=== PATIENT | female | born 1990 | race Caucasian/White ===

== ENCOUNTER 2016-05-02 05:34 | Day surgery (SDC) | payer OTHER ==
[~2016-05-02 05:34] MED LIST: SCOPOLAMINE HYDROBROMIDE 1.5 MG PATCH TD ONE
[2016-05-02] MEDS ORDERED: CLINDAMYCIN 900 MG/DEXTROSE 50 ML IV ONE (06:00)
[2016-05-02] MEDS ORDERED: ACETAMINOPHEN 500 MG TAB PO ONE (06:00)
[2016-05-02] MEDS ORDERED: PREGABALIN 75 MG CAP PO ONE (06:00)
[2016-05-02] MEDS ORDERED: BUPIVACAINE/EPI 0.25% 30 ML SDV ONE (06:35)
[2016-05-02] MEDS ORDERED: EPINEPHrine 30 MG/30 ML MDV ONE (06:36)
[2016-05-02] MEDS ORDERED: SCOPOLAMINE HYDROBROMIDE 1.5 MG PATCH TD ONE (06:39)
[2016-05-02] MEDS ORDERED: OXYCODONE/APAP 5/325 TAB PO PRN (06:43)
[2016-05-02] MEDS ORDERED: CHLORHEXIDINE GLUC HIBICLENS 118 ML BTL TP ONE (06:48)
[2016-05-02] MEDS ORDERED: LIDOCAINE 1% 5 ML SDV ONE (06:49)
[2016-05-02] MEDS ORDERED: LR 1,000 ML IV ONE (06:52)
[2016-05-02] MEDS ORDERED: LIDOCAINE 1% 5 ML SDV ID PRN (06:52)
[2016-05-02] MEDS ORDERED: PROPOFOL/EMULSION 500 MG/50 ML BOTTLE IV ONE ×2 (07:53→08:00)
[2016-05-02] MEDS ORDERED: fentaNYL 250 MCG/5 ML INJ ONE (07:53)
[2016-05-02] MEDS ORDERED: MIDAZOLAM 2 MG/2 ML VIAL ONE (07:58)
[2016-05-02] MEDS ORDERED: KETOROLAC 30 MG/1 ML SDV ONE (09:12)
[2016-05-02] MEDS ORDERED: DEXAMETHASONE 4 MG/ML VIAL ONE (09:12)
[2016-05-02] MEDS ORDERED: ONDANSETRON 4 MG/2 ML VIAL ONE (09:12)
[2016-05-02] MEDS ORDERED: NEOSTIGMINE METHYLSULFATE 5 MG/5 ML SYR ONE (09:12)
[2016-05-02] MEDS ORDERED: METOCLOPRAMIDE 10 MG/2 ML VIAL ONE (09:12)
[2016-05-02] MEDS ORDERED: LIDOCAINE 2% 5 ML SDV ONE (09:12)
[2016-05-02] MEDS ORDERED: ROCURONIUM 50 MG/5 ML VIAL ONE (09:12)
[2016-05-02] MEDS ORDERED: GLYCOPYRROLATE 0.2 MG/1 ML VIAL ONE (09:12)
[2016-05-02] MEDS ORDERED: DEXMEDETOMIDINE HCL 200 MCG/2 ML VIAL IV ONE (09:35)
[2016-05-02] MEDS ORDERED: fentaNYL 100 MCG/2 ML INJ ONE (10:31)
[2016-05-02] MEDS ORDERED: OXYCODONE/APAP 5/325 TAB ONE (10:52)
--- NOTE | 2016-05-02 19:33 | DX ---
Fluoroscopy, Greater Than 1 Hour INDICATION: Left hip arthroscopy. FINDINGS: Two intraoperative fluoroscopic images are provided with hardware pointing at the left hip articulation. 14.6 seconds of fluoroscopy was provided.
== END 2016-05-02 12:34 | disposition home or self-care (01) ==
LOC: FSGY 05:34
PROVIDERS: ATTEND Orthopaedic Surgery Sports Medicine
PROC: 0SBB4ZZ Excision of Left Hip Joint, Percutaneous Endoscopic Approach (ICD-10-PCS; principal; 2016-05-02 08:00)
DX: Q65.89 Other specified congenital deformities of hip (principal); J45.909 Unspecified asthma, uncomplicated; K58.9 Irritable bowel syndrome, unspecified; Q79.6 Ehlers-Danlos syndromes
CPT/HCPCS: 29862; 29863; 76001; C1769; J1100; J1885; J2250; J2405; J2704; J2710; J2765; J3010

== ENCOUNTER 2016-05-06 05:22 | Inpatient (IN) | payer OTHER ==
[2016-05-06] MEDS ORDERED: LIDOCAINE 1% 5 ML SDV ID PRN (06:18)
[2016-05-06] MEDS ORDERED: LR 1,000 ML IV ONE (06:18)
[2016-05-06] MEDS ORDERED: CITRATE DEXTROSE SOLN 500 ML BAG ONE (06:47)
[2016-05-06] MEDS ORDERED: SKIN ADHESIVE (DERMABOND) 1 EACH TP ONE (06:47)
[2016-05-06] MEDS ORDERED: ACETAMINOPHEN 500 MG TAB ONE (06:47)
[2016-05-06] MEDS ORDERED: PREGABALIN 75 MG CAP ONE (06:48)
[2016-05-06] MEDS ORDERED: CLINDAMYCIN 900 MG/DEXTROSE/50 ML BAG IV ONE (06:48)
[2016-05-06] MEDS ORDERED: BUPIVACAINE/EPI 0.25% 30 ML SDV ONE (06:48)
[2016-05-06] MEDS ORDERED: ACETAMINOPHEN 500 MG TAB PO ONE (07:00)
[2016-05-06] MEDS ORDERED: CHLORHEXIDINE GLUC HIBICLENS 118 ML BTL TP ONE (07:00)
[2016-05-06] MEDS ORDERED: CLINDAMYCIN 900 MG/DEXTROSE 50 ML IV ONE ×2 (07:00→11:00)
[2016-05-06] MEDS ORDERED: TRANEXAMIC ACID 1,000 MG in NS 100 ML IV ONE (07:00)
[2016-05-06] MEDS ORDERED: PREGABALIN 50 MG CAP PO ONE (07:00)
[2016-05-06] MEDS ORDERED: SCOPOLAMINE HYDROBROMIDE 1.5 MG PATCH TD ONE ×2 (07:02→07:30)
[2016-05-06] MEDS ORDERED: fentaNYL 100 MCG/2 ML INJ ONE (07:04)
[2016-05-06] MEDS ORDERED: PROPOFOL/EMULSION 500 MG/50 ML BOTTLE IV ONE ×3 (07:04→10:54)
[2016-05-06] MEDS ORDERED: ROCURONIUM 50 MG/5 ML VIAL ONE (07:08)
[2016-05-06] MEDS ORDERED: LIDOCAINE 2% 100 MG/5 ML SYR IVP ONE (07:09)
[2016-05-06] MEDS ORDERED: MIDAZOLAM 2 MG/2 ML VIAL ONE (07:13)
[2016-05-06] MEDS ORDERED: HYDROmorphONE/DILAUDID 2 MG/ML SYR ONE (08:43)
[2016-05-06] MEDS ORDERED: ONDANSETRON 4 MG/2 ML VIAL ONE (08:48)
[2016-05-06] MEDS ORDERED: DEXAMETHASONE 4 MG/ML VIAL ONE (08:48)
[2016-05-06] MEDS ORDERED: SUGAMMADEX SODIUM 200 MG/2 ML VIAL IVP ONE (12:24)
[2016-05-06] MEDS ORDERED: ALBUTEROL 60 PUFFS/8 GM MDI IH PRN (12:46)
[2016-05-06] MEDS ORDERED: MAGNESIUM HYDROXIDE 30 ML UDCUP PO PRN (12:47)
[2016-05-06] MEDS ORDERED: ONDANSETRON 4 MG/2 ML VIAL IVP PRN ×2 (12:47→12:58)
[2016-05-06] MEDS ORDERED: POLYETHYLENE GLYCOL 3350 17 GM PKT PO PRN (12:47)
[2016-05-06] MEDS ORDERED: LACTULOSE 20 GM/30 ML UDCUP PO PRN (12:47)
[2016-05-06] MEDS ORDERED: BISACODYL 10 MG SUPP PR PRN (12:47)
[2016-05-06] MEDS ORDERED: fentaNYL 4MCG/ML/BUP 0.1% in 100ML NS EP SCH (12:58)
[2016-05-06] MEDS ORDERED: NALOXONE HCL 0.4 MG/ML INJ IVP PRN (12:58)
[2016-05-06] MEDS ORDERED: NARCOTIC DRIP BAG-TOTAL ALL TYPES EP PRN (12:58)
[2016-05-06] MEDS ORDERED: HYDROmorphONE/DILAUDID 1 MG/ML SYR ONE (13:29)
[2016-05-06] MEDS: diphenhydrAMINE 25 MG CAP PO PRN (17:06)
--- NOTE | 2016-05-06 17:55 | DX ---
Intraoperative Fluoroscopy and Supine AP Pelvis, 10:59 AM History: Pelvic rotational osteotomy Intraoperative fluoroscopy time = 17.63 mGy Findings: One AP view of the pelvis: 2 compression screws overlie the superior right acetabulum and l ateral right iliac crest. 3 Steinmann pins overlie the right acetabulum or an osteotomy is in anatomi c alignment. A surgical drain overlies the left femoral neck. There is been an osteotomy of both late ral superior pubic rami and of the left superior ischium. Impression: Excellent intraoperative alignment.
--- NOTE | 2016-05-06 18:13 | DX ---
Single View Pelvis at 1316 hours HISTORY: Bilateral acetabular osteotomies. Findings: Bilateral superior acetabular osteotomies identified, with two oblique screws on the right and three on the left. No significant degenerative changes bilateral proximal femurs. Moderate sto ol in the colon. IMPRESSION: Bilateral acetabular osteotomies, with screws.
--- NOTE | 2016-05-06 21:10 | SUROPNOTE ---
RANJAN Operative Report - Surgery Surgery was performed at [facility] on 05/06/16 Diagnosis: Left 1. Hip Acetabular Dysplasia Operation: Left Claudette Acetabular Osteotomy (JUSTINE) Surgeon: Rafael Kelley MD Guest Services Coordinator: Mitch HAY Anesthetic: General + epidural Procedure: General anesthetic. Antibiotics given. Cell saver in use. Fluoroscopy. Phase 1: Position lateral, diagonal skin incision between ischial tuberosity and greater trochanter as for posterior hip approach. Blunt split of glut max fibers. Identification of fat pad overlying sciatic nerve. Exposure of sciatic nerve under fat pad, gently retracting it away-medially to ischial tuberosity. Exposure of subcotoloid fossa proximal to short rotators. Using osteotomes and under fluoroscopy, osteotomy of subcotoloid fossa to sciatic notch proximal to ischial spine. Closure of lateral cut. Patient is turned supine. Phase 2: Skin incision just distal to ASIS. Using diathermy the iliac spine was exposed and inguinal ligament + Sartorious were retracted medially, taking the LFCN with them, protecting it. Inner ilium was dissected from iliacus muscle bluntly , with a cob and swab. Dissection continued towards lateral superior ramus pubis. Using fluoroscopy an osteotomy of lateral superior ramus, just medial to tear drop, was performed with curved fish mouth osteotome. Phase 3: Osteotomy lines of the ilium were marked with diathermy as pre planned according to XR/CT and expected correction of acatabulum. 2 Shanz screws were drilled into central acetabular fragment, corresponding with planned correction angles, in order to mobilize central acetabular fragment after osteotomy is complete. Iliac osteotomy was performed with reciprocating saw and the main acetabular fragment was moved to realign weight bearing position. After confirmation of correction using fluoroscopy in AP and false profile planes, the fragment was fixed with 3 - 5.5mm full threaded screws Inguinal ligament and Sartorious were attached back to ASIS through drill holes. Incision was closed according to soft tissue layers. Skin was closed with subdermal Monocryl. Final fluoro shots were obtained to confirm position/correction. After surgery Claire moved both lower limbs and had no NV motor compromise. Evaluation under anesthesia: IR at 90 degrees hip flexion prior to JUSTINE was 25 degrees and after JUSTINE was 15 degrees. Bleedin cc into cell-saver, 135cc of blood products were returned to patient. Post op instructions: 1. Non weight bearing crutches for 4 weeks 2. Epidural analgesia for 24-48 hours 3. Continuous SCD 4. Aspirin 81 mg X1 day once Epidural is discontinued 5. Avoid hip flexion past 90 and hip External rotation. 6. PT according to my recommendations at follow up visit Kind regards, Dr. Rafael Kelley
[2016-05-06] MEDS: SENNOSIDES/DOCUSATE SODIUM TAB PO SCH (21:13)
[2016-05-06] MEDS: ACETAMINOPHEN 325 MG TAB PO PRN (21:17)
[2016-05-07 05:11] LABS: HEMATOCRIT 31.5 % (38.0-47.0); HEMOGLOBIN 10.2 g/dL (12.6-16.3); MEAN CELL HEMOGLOBIN CONCENTR. 32.4 g/dL (32.4-36.7); MEAN CELL VOLUME 89.5 fL (81.5-99.8); RED BLOOD CELL COUNT 3.52 10^6/uL (4.18-5.33); RED CELL DISTRIBUTION WIDTH 14.6 % (11.5-15.2)
[2016-05-07 05:19] LABS: ANION GAP 4 mEq/L (8-16); CALCIUM 8.3 mg/dL (8.5-10.4); CARBON DIOXIDE 26 mEq/l (22-31); CHLORIDE 104 mEq/L (97-110); CREATININE 0.7 mg/dL (0.6-1.0); GLOMERULAR FILTRATION RATE > 60; GLUCOSE 114 mg/dL (70-100); POTASSIUM 4.3 mEq/L (3.5-5.2); SODIUM 134 mEq/L (134-144)
[2016-05-07] MEDS: diphenhydrAMINE 25 MG CAP PO PRN ×3 (07:51→21:17)
[2016-05-07] MEDS: PANTOPRAZOLE SODIUM 40 MG TAB PO SCH (07:51)
[2016-05-07] MEDS: SENNOSIDES/DOCUSATE SODIUM TAB PO SCH ×2 (07:52→20:38)
[2016-05-07] MEDS: PREGABALIN 50 MG CAP PO SCH (07:52)
[2016-05-07] MEDS: CETIRIZINE 10 MG TAB PO SCH (07:53)
[2016-05-07] MEDS: CYCLOBENZAPRINE 10 MG TAB PO SCH (07:53)
[2016-05-07] MEDS ORDERED: FLUTICASONE FUROATE IH SCH (09:00)
[2016-05-07] MEDS: DIAZEPAM 2 MG TAB PO PRN ×3 (09:05→21:17)
--- NOTE | 2016-05-07 09:13 | POSTANESTH ---
Post Anesthetic Evaluation Cardiovascular Status: Normal, Stable, Similar to Pre-Op Cond Respiratory Status: Normal, Stable, Similar to Pre-op Cond. Level of Consciousness/Mental Status: Can Participate in Eval, Alert and Oriented Pain Control: Inadeq, Add Tx Required Nausea/Vomiting Control: Adequate, Prn Tx Ordered Complications Possibly Related to Anesthesia: None Noted Notes: JUSTINE POD# with T12/L1 PCEA. She reports frustration with disruption of epidural infusion. She notes good pain control when infusion is running but that periodic interruptions with pump malfunction and/or bag changes caused significant increases in her discomfort. On examination she has a T10 to L3 level bilateral. She notes that she is able to detect the numbness much more acutely on the nonoperative side. Catheter site is c/d/i, small amount dried heme, no erythema/edema/exudate, catheter at 10 cm. LE strength is 5/5 LLE and 4/5 RLE (exam limited by pain). We discussed the common sensation in these kinds of surgeries of perceived one- sided epidural when physical exam shows a bilateral distribution. Pt expressed understanding. Plan to increase bupivicaine to 0.125%, to attempt a more dense blockade, maintain fentanyl 4 mcg/ml rate 8 demand 4 and lockout 15. Plan to transition to orals starting tomorrow. Ambulate per ortho.
[2016-05-07] MEDS ORDERED: BUPIVACAINE 0.5% EP SCH (11:00)
[2016-05-07] MEDS ORDERED: FENTANYL EP SCH (11:00)
[2016-05-07] MEDS ORDERED: NS EP SCH (11:00)
[2016-05-07] MEDS: DC NARCS MISC SCH (11:14)
[2016-05-07] MEDS: REGARDING ANTICOAG MISC SCH (11:14)
[2016-05-07] MEDS: BUPIVACAINE 0.5% EP SCH ×2 (11:15→18:45)
[2016-05-07] MEDS: NS EP SCH ×2 (11:15→18:45)
[2016-05-07] MEDS: FENTANYL EP SCH ×2 (11:15→18:45)
--- NOTE | 2016-05-07 11:26 | SOAPPROG ---
SOAP Progress Note Assessment/Plan: Assessment: 1 day post op Left periacetabular osteotomy Plan: PCEA per anesthesia transition to oral analgesics in 1-2 05/07/16 10:28 Subjective: Claire describes having numbness in her RLE and 'no pain' relief in her LLE, saying that the epidural is 'not covering' her pain. She denies any nausea, CP , or SOB. Objective: Vital Signs Temp Pulse Resp BP Pulse Ox 37.4 C 110 H 18 120/73 98 05/07/16 07:22 05/07/16 07:22 05/07/16 07:22 05/07/16 07:22 05/07/16 07:22 Laboratory Results 05/07/16 04:49 05/07/16 04:49 05/06/16 05/07/16 05/08/16 05:59 05:59 05:59 Intake Total 985 Output Total 1800 Balance -815 Well appearing in NAD She looks comfortable in bed Left hip: dressings clean dry intact some diffuse edema no LFCN numbness LLE: NVI distally full ROM of foot and ankle ICD10 Worksheet Patient Problems: Problems Problem Status Diagnosed Post-operative pain Acute - ICD10 Problem Qualifiers (1) Post-operative pain
[2016-05-07] MEDS ORDERED: LEVONORGESTREL ETHIN ESTRADIOL PO SCH (11:45)
[2016-05-07] MEDS: ACETAMINOPHEN 325 MG TAB PO PRN (15:22)
[2016-05-07] MEDS: QUASENSE PO SCH ×2 (18:45→20:36)
[2016-05-07] MEDS: FLUTICASONE FUROATE IH SCH (20:35)
[2016-05-08] MEDS: ACETAMINOPHEN 325 MG TAB PO PRN (00:05)
[2016-05-08] MEDS: NS EP SCH ×2 (03:27→12:02)
[2016-05-08] MEDS: diphenhydrAMINE 25 MG CAP PO PRN (03:27)
[2016-05-08] MEDS: BUPIVACAINE 0.5% EP SCH ×2 (03:27→12:02)
[2016-05-08] MEDS: FENTANYL EP SCH ×2 (03:27→12:02)
[2016-05-08] MEDS: DIAZEPAM 2 MG TAB PO PRN ×2 (03:27→10:41)
[2016-05-08] MEDS: ONDANSETRON DISINTEGRATING 4 MG TAB PO PRN (04:23)
[2016-05-08] MEDS: PANTOPRAZOLE SODIUM 40 MG TAB PO SCH (08:44)
[2016-05-08] MEDS: CETIRIZINE 10 MG TAB PO SCH (08:44)
[2016-05-08] MEDS: SENNOSIDES/DOCUSATE SODIUM TAB PO SCH ×2 (08:44→19:50)
[2016-05-08] MEDS: PREGABALIN 50 MG CAP PO SCH (08:45)
[2016-05-08] MEDS: DC NARCS MISC SCH (08:48)
[2016-05-08] MEDS: REGARDING ANTICOAG MISC SCH (08:48)
[2016-05-08] MEDS: QUASENSE PO SCH ×2 (08:48→19:50)
[2016-05-08] MEDS: CYCLOBENZAPRINE 10 MG TAB PO SCH (08:52)
[2016-05-08] MEDS: ACETAMINOPHEN 500 MG TAB PO SCH ×4 (08:53→22:18)
--- NOTE | 2016-05-08 08:53 | POSTANESTH ---
Post Anesthetic Evaluation Cardiovascular Status: Normal, Stable, Similar to Pre-Op Cond Respiratory Status: Normal, Stable, Similar to Pre-op Cond. Level of Consciousness/Mental Status: Can Participate in Eval, Alert and Oriented Pain Control: Adequate, Prn Tx Ordered Nausea/Vomiting Control: Adequate, Prn Tx Ordered Notes: JUSTINE POD#2. Pain control rated as good this am, states 5/10. Feels that the increased concentration yesterday improved pain control. Back site c/d/i, no e/ e/e. Plan to start transition to orals today. D/W patient and she agrees. Decrease PCEA to 4 cc/hr, demand 2 cc lockout 15 min. Oxycodone 10 mg q6 ATC (pt may refuse) Oxycodone 5 mg Q4 PRN Pain. APAP 500 mg Q4 ATC. Orders in. Lyrica as ordered. If successful will hold epidural in the am and D/C tomorrow afternoon.
[2016-05-08] MEDS: oxyCODONE IR 5 MG TAB PO SCH ×3 (12:23→23:51)
[2016-05-08] MEDS: ASPIRIN EC 81 MG TAB PO SCH (12:32)
[2016-05-08 12:49] LABS: HEMATOCRIT 32.8 % (38.0-47.0); HEMOGLOBIN 10.7 g/dL (12.6-16.3)
--- NOTE | 2016-05-08 14:25 | CPEKG ---
Heart Rate: 113 RR Interval: 531 P-R Interval: 136 QRSD Interval: 74 QT Interval: 312 QTC Interval: 428 P Gotha: 73 QRS Gotha: 47 T Wave Gotha: 0 EKG Severity - OTHERWISE NORMAL ECG - EKG Impression: SINUS TACHYCARDIA Electronically Signed By: Aleksandr Motley 08-May-2016 18:16:08
--- NOTE | 2016-05-08 14:40 | PDHOSCONS ---
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 She is in POD #2. Overall she has done well but noted to have slight tachycardia. She is asymptomatics. Denies CP, SOB, palpitation, leg swelling, cough. She is on RA. She has been keeping trach of her HR as she has an apple watch and over the last week her HR has been between 70-120's. She has had some tachycardia prior to the surgery. ROS: + per HPI, otherwise negative PMH: per above PSH: per above SHx: no T/E/I FmHx: Grandfather with heart diseas med/all: see med list O: VS: slight tachycardia MMM NO JVD SLIGHT TACHYCARDIA, NO M/R/G CTA B S/NT/ND NO EDEMA ANXIOUS LABS REVIEWED: HGB 10.7 BMP OK EKG: SINUS TACHYCARDIA I/P #S/P L DWAYNE ACETABULAR OSTEOTOMY, POD #2 #TACHYCARDIA #HX OF GEMINI-DANLOS SYNDROME #ANXIETY? PLAN: ETIOLOGY OF THE TACHYCARDIA IS UNCLEAR. SHE AND THE NURSE REPORT LOW GRADE FEVER WHICH COULD BE CONTRIBUTING. SHE HAS NOT RESP SX'S AND A NORMAL EXAM. WHILE A P.E. IS IN THE DIFFERENTIAL, WOULD EXPECT SOME SX'S. SHE AND HER MOM ALSO REPORT INTERMITTENT TACHYCARDIA. HER TACHYCARDIA COULD CERTAINLY BE FROM ANXIETY. SHE DOES NOT HAVE VOLUME DEPLETION GIVEN THE ABOVE AND HX OF GEMINI-DANLOS, WILL START TELEMETRY AND OBTAIN TTE. IF STILL TACHY TOMORROW, WILL GET A CTA CHEST TO R/O P.E. THANK YOU FOR THIS CONSULT TOTAL TIME SPENT IS 60 MINUTES
--- NOTE | 2016-05-08 17:20 | ECHO ---
[id number] + + [address] : : [place] [address] : : [phone] + + Adult Echocardiographic Report + -----+ :Name: Vic TRANxavier Date: 05/08/2016 02:59 PM : : Hospital Admission Number: [id number] Location : 362: :: 1990 Gender: Female Height: 65 in : :Age: 25 yrs Race: WH Weight: 194 lb : :Reason For Study: Acute on chronic tachycardia in post op : :period BSA: 2.0 meters2 : :History: Lydia : + -----+ MMode/2D Measurements & Calculations IVSd: 0.74 cm LVIDd: 4.7 cm FS: 37.1 % Ao root diam: LVPWd: 0.83 cm LVIDs: 3.0 cm EDV(Teich): 2.5 cm 104.4 ml LA dimension: ESV(Teich): 2.9 cm 34.4 ml EF(Teich): 67.0 % LVLd ap4: 9.0 cm SV(MOD-sp4): EDV(MOD-sp4): 50.0 ml 77.0 ml LVLs ap4: 7.1 cm ESV(MOD-sp4): 27.0 ml EF(MOD-sp4): 64.9 % Normal Measurement Values: + + :LVIDd (3.5-5.7cm) IVSd (0.6-1.1cm) LVPWd (0.6-1.1cm) Aortic Root (2.0-3.7cm)Left Atrium (1.5-4.0cm): :LV Vol(d) (76-115ml) LV Vol(s) (29-48ml) Ejec Fraction (50-65%)PV Tristian (0.6- 1.2m/s) TV Tristian (0.4-1.0m/s) : :MV E Tristian (0.8-1.0m/s)MV A Tristian (0.3-1.0m/s)LVOT Tristian (0.7-1.2m/s) Asc Ao Tristian ( 0.9-1.8m/s) : + + Doppler Measurements & Calculations MV E max tristian: 79.5 cm/sec Ao V2 max: 161.0 cm/sec MV A max tristian: 61.2 cm/sec Ao max P.4 mmHg MV E/A: 1.3 Ao mean P.0 mmHg Ao V2 mean: 114.0 cm/sec Ao V2 VTI: 24.7 cm Left Ventricle The left ventricle is normal in size. There is normal left ventricular wall thickness. Ejection Fraction = 65-70%. The left ventricle is hyperdynamic. Right Ventricle The right ventricle is normal in size and function. Atria The left atrial size is normal. Right atrial size is normal. Mitral Valve The mitral valve is normal in structure and function. There is no evidence of mitral valve prolapse. There is no mitral valve stenosis. Tricuspid Valve Normal tricuspid valve. There is trace tricuspid regurgitation. Aortic Valve The aortic valve is not well visualized. There is no aortic stenosis. There is no aortic insufficiency. Pulmonic Valve The pulmonic valve is not well visualized. Great Vessels The aortic root is normal size. Pericardium/Pleural There is no pericardial effusion. Conclusion A complete two-dimensional transthoracic echocardiogram was performed (2D, M-mode, Doppler and color flow Doppler). 1. The left ventricle is normal in size. The left ventricle is hyperdynamic. The Ejection Fraction = 65-70%. 2. The mitral valve is normal in structure and function. 3. The aortic valve is not well visualized. There is no aortic stenosis. There is no aortic insufficiency. 4. The pulmonary artery pressure could not be adequately estimated. 5. No pericardial effusion. 6. No old studies for comparison. Final Reading Physician: Moiz Gallardo MD electronically signed on 05/08/2016 05:19 PM Ordering Physician: Catracho Diaz Performed By: Kelsy Martines RDCS
[2016-05-08] MEDS: FLUTICASONE FUROATE IH SCH (19:51)
--- NOTE | 2016-05-08 21:58 | SOAPPROG ---
JAMES Progress Note Assessment/Plan: Assessment: Plan: 05/08/16 21:56 Saw Claire today. She is doing well. pain well managed. vitals are stable. HR was high today and this was looked into by hospitalist including Holter placement. she is now 105 HR, NV intact, well managed with pain (although epidural doesn't work well on op side). will do xR tomorrow Dr Kelley Objective: Vital Signs Temp Pulse Resp BP Pulse Ox 36.9 C 105 H 19 127/71 H 94 05/08/16 20:04 05/08/16 20:04 05/08/16 20:04 05/08/16 20:04 05/08/16 20:04 Laboratory Results 05/08/16 12:40 05/07/16 04:49 05/07/16 05/08/16 05/09/16 05:59 05:59 05:59 Intake Total 229 377 0663 Output Total 1800 2500 2350 Balance -815 -1800 150 ICD10 Worksheet Patient Problems: Problems Problem Status Diagnosed Post-operative pain Acute
[2016-05-09] MEDS: ACETAMINOPHEN 500 MG TAB PO SCH ×6 (02:00→21:13)
[2016-05-09 05:07] LABS: HEMATOCRIT 32.3 % (38.0-47.0); HEMOGLOBIN 10.5 g/dL (12.6-16.3); MEAN CELL HEMOGLOBIN 29.1 pg (27.9-34.1); MEAN CELL HEMOGLOBIN CONCENTR. 32.5 g/dL (32.4-36.7); MEAN CELL VOLUME 89.5 fL (81.5-99.8); RED BLOOD CELL COUNT 3.61 10^6/uL (4.18-5.33); RED CELL DISTRIBUTION WIDTH 14.6 % (11.5-15.2)
[2016-05-09 05:33] LABS: ANION GAP 6 mEq/L (8-16); CALCIUM 8.3 mg/dL (8.5-10.4); CARBON DIOXIDE 26 mEq/l (22-31); CHLORIDE 107 mEq/L (97-110); CREATININE 0.6 mg/dL (0.6-1.0); GLOMERULAR FILTRATION RATE > 60; GLUCOSE 99 mg/dL (70-100); POTASSIUM 4.1 mEq/L (3.5-5.2); SODIUM 139 mEq/L (134-144)
[2016-05-09] MEDS: oxyCODONE IR 5 MG TAB PO SCH ×3 (06:02→18:38)
--- NOTE | 2016-05-09 06:55 | POSTANESTH ---
Post Anesthetic Evaluation Cardiovascular Status: Normal, Stable, Similar to Pre-Op Cond Respiratory Status: Normal, Stable, Similar to Pre-op Cond. Level of Consciousness/Mental Status: Can Participate in Eval, Alert and Oriented Pain Control: Adequate, Prn Tx Ordered Nausea/Vomiting Control: Adequate, Prn Tx Ordered Complications Possibly Related to Anesthesia: None Noted Notes: JUSTINE POD#3. BAck site C/D/I, no e/e/e. Pain 4/10, transitioning well to oral medications. Plan to hold PCEA infusion this am and D/C 10 am.
[2016-05-09] MEDS: ASPIRIN EC 81 MG TAB PO SCH (08:46)
[2016-05-09] MEDS: PREGABALIN 50 MG CAP PO SCH (08:47)
[2016-05-09] MEDS: PANTOPRAZOLE SODIUM 40 MG TAB PO SCH (08:47)
[2016-05-09] MEDS: CYCLOBENZAPRINE 10 MG TAB PO SCH (08:47)
[2016-05-09] MEDS: SENNOSIDES/DOCUSATE SODIUM TAB PO SCH ×2 (08:47→21:11)
[2016-05-09] MEDS: CETIRIZINE 10 MG TAB PO SCH (08:47)
--- NOTE | 2016-05-09 09:05 | DX ---
AP Pelvis History: Follow-up rotational pelvic osteotomy Comparison: May 06 Findings: Alignment of the pelvic ring is stable. Compression screws are in stable position. Impression: Stable.
[2016-05-09] MEDS: DC NARCS MISC SCH (10:03)
[2016-05-09] MEDS: REGARDING ANTICOAG MISC SCH (10:03)
[2016-05-09] MEDS: oxyCODONE IR 5 MG TAB PO PRN ×3 (10:19→21:14)
[2016-05-09] MEDS: diphenhydrAMINE 25 MG CAP PO PRN ×2 (10:21→21:10)
[2016-05-09] MEDS: DIAZEPAM 2 MG TAB PO PRN ×2 (13:01→19:36)
[2016-05-09] MEDS ORDERED: CANN-EASE 2 GM TUBE TP ONE (13:53)
--- NOTE | 2016-05-09 15:02 | HOSPPROG ---
Hospitalist Progress Note Assessment/Plan: #S/P L DWAYNE ACETABULAR OSTEOTOMY, POD #3 #TACHYCARDIA, LIKELY PAIN VS ANXIETY RELATED -SHE HAS NO RESP SX'S, NO CP -IF TACHYCARDIA PERSIST, CONSIDER CTA (PT WANTS TO HOLD OFF ON CHECKING THIS TODAY) -TTE NORMAL -EKG SINUS TACHYCARDIA #HX OF TODD-DANLOS SYNDROME #ANXIETY #ACUTE PAIN PLAN: OVERALL STABLE. SHE REPORTS LOTS OF PAIN YESTERDAY AND TODAY WELL ANXIETY REGARDING THE PAIN. THIS IS LIKELY THE CAUSE OF THE TACHYCARDIA. LOW SUSPICION FOR ACUTE P.E. GIVEN NO SX'S AND ALTERNATIVE REASON FOR TACHYCARDIA. SHE WANTS TO HOLD OFF GETTING CTA AT THIS TIME S: + PAIN NO CP NO PALPITATION O: VSS NAD AAOX3 RRR CTA B S/NT/ND NO LE EDEMA LABS: REVIEWED Objective: Vital Signs Temp Pulse Resp BP Pulse Ox 37.1 C 119 H 18 119/85 H 93 05/09/16 11:17 05/09/16 11:17 05/09/16 11:17 05/09/16 11:17 05/09/16 11:17 Laboratory Results 05/09/16 04:46 05/09/16 04:46 05/08/16 05/09/16 05/10/16 05:59 05:59 05:59 Intake Total 700 3200 Output Total 2500 3200 1500 Balance -1800 0 -1500 ICD10 Worksheet Patient Problems: Problems Problem Status Diagnosed Post-operative pain Acute
--- NOTE | 2016-05-09 17:49 | WOCRNPDOC ---
WOCRN Advanced Assessment Note - Skin Integrity Problem, Advanced Assess Left Hip Blister Dressing Type: LeukoMed with Pads (over surgical wounds. ) Wound Bed Constitution: Intact Serous Filled Blister (multiple) Skin Integrity Problem Comment: Multiple blisters along border of tegaderm and adjacent to it. May be contact dermatits reaction. Covered with Allevyn for protection. Shey Roa in room for care.
[2016-05-09] MEDS: FLUTICASONE FUROATE IH SCH (21:16)
[2016-05-09] MEDS: QUASENSE PO SCH (21:16)
--- NOTE | 2016-05-09 23:09 | SOAPPROG ---
SOAP Progress Note Assessment/Plan: Assessment: Plan: 05/08/16 21:56 Saw Claire today. She is doing well. pain well managed. vitals are stable. HR was high today and this was looked into by hospitalist including Holter placement. she is now 105 HR, NV intact, well managed with pain (although epidural doesn't work well on op side). will do xR tomorrow Dr Kelley 05/09/16 23:07 Saw Claire this morning. objectively she is doing well. High Hb for POD 3, NV intact, Radiograph show good unchanged alignment. however she is stressed over her epidural experience and current pain level. she has some blisters around Tegaderm, addressed. Epi is out. We will consider discharge when she feels confident. Dr Kelley Objective: Vital Signs Temp Pulse Resp BP Pulse Ox 37.8 C 129 H 20 133/74 H 97 05/09/16 19:59 05/09/16 19:59 05/09/16 19:59 05/09/16 19:59 05/09/16 19:59 Laboratory Results 05/09/16 04:46 05/09/16 04:46 05/08/16 05/09/16 05/10/16 05:59 05:59 05:59 Intake Total 700 3200 Output Total 2500 3200 1850 Balance -1800 0 -1850 ICD10 Worksheet Patient Problems: Problems Problem Status Diagnosed Post-operative pain Acute
[2016-05-10] MEDS: ACETAMINOPHEN 500 MG TAB PO SCH ×6 (00:52→21:11)
[2016-05-10] MEDS: oxyCODONE IR 5 MG TAB PO SCH ×4 (00:53→18:25)
[2016-05-10] MEDS: DIAZEPAM 2 MG TAB PO PRN (05:11)
[2016-05-10] MEDS: diphenhydrAMINE 25 MG CAP PO PRN (05:15)
[2016-05-10] MEDS: ASPIRIN EC 81 MG TAB PO SCH (09:07)
[2016-05-10] MEDS: PREGABALIN 50 MG CAP PO SCH (09:07)
[2016-05-10] MEDS: CYCLOBENZAPRINE 10 MG TAB PO SCH (09:07)
[2016-05-10] MEDS: PANTOPRAZOLE SODIUM 40 MG TAB PO SCH (09:07)
[2016-05-10] MEDS: CETIRIZINE 10 MG TAB PO SCH (09:07)
[2016-05-10] MEDS: oxyCODONE IR 5 MG TAB PO PRN (09:08)
[2016-05-10] MEDS: DC NARCS MISC SCH (09:08)
[2016-05-10] MEDS: REGARDING ANTICOAG MISC SCH (09:08)
[2016-05-10] MEDS: SENNOSIDES/DOCUSATE SODIUM TAB PO SCH ×2 (09:22→21:10)
[2016-05-10] MEDS ORDERED: oxyCODONE IR 5 MG TAB PO PRN (12:40)
[2016-05-10] MEDS: ONDANSETRON DISINTEGRATING 4 MG TAB PO PRN (12:40)
[2016-05-10] MEDS: NAPROXEN SODIUM 220 MG TAB PO SCH ×2 (14:30→21:11)
--- NOTE | 2016-05-10 16:07 | HOSPPROG ---
Hospitalist Progress Note Assessment/Plan: Assessment: 25-year-old female presents with Pedroza where syndrome requiring yamile-acetabular osteotomy Plan: 1. Periacetabular osteotomy. Primary service is Dr. Samina Porter, postop day 4 -postsurgical care and weight-bearing status per primary team 2. Pain. Pain Management is a significant issue for this patient at the present time she is complaining of left hip pain, pain with movement, total body pain, headache -agree with scheduled oxycodone immediate release 10 mg q.6 hours to reduce spikes of uncontrolled pain, this could be transitioned to oxycodone sustained release if so desired by the primary team -adjusted the breakthrough dosage of oxycodone immediate release from 5 mg to 5- 10 mg q.4 hours p.r.n. -continue scheduled Tylenol per primary team -initiate nonsteroidal anti-inflammatory medication per primary team -continue as needed Benadryl for headache -she has IV morphine p.r.n. breakthrough -please contact the primary service if further, specific questions arise about the pain management regiment from the patient 3. Tachycardia. Sinus, a personally interpreted EKG, most likely secondary to a combination of pain and emotional distress -patient has no evidence of focal chest pain, shortness of breath, hypoxia, consequently pulmonary embolism is less likely and I would not recommend a CT angiogram at this time -monitor CBC to ensure that patient's blood count is not significantly declining and contributing to her tachycardia -continue to improve pain management as well as provide emotional distress support, as emotional distress is significantly impacting patient's current care 4. Reported yellow stain were syndrome. Continue to offer support for this patient given her highly medical [facility] Medicine service will continue to consult in this patient's care please contact us if there are further questions Subjective: The patient is experiencing a significant amount of emotional distress, she has had a bowel movement Objective: Vital Signs Temp Pulse Resp BP Pulse Ox 36.9 C 96 18 141/86 H 100 05/10/16 12:00 05/10/16 12:00 05/10/16 12:00 05/10/16 12:00 05/10/16 12:00 Laboratory Results 05/09/16 04:46 05/09/16 04:46 05/09/16 05/10/16 05/11/16 05:59 05:59 05:59 Intake Total 3200 300 Output Total 3200 1850 1 Balance 0 -1550 -1 - Time Spent With Patient Time Spent with Patient: greater than 35 minutes Time Spent with Patient: Greater than 35 minutes spent on this patients care, greater than 50% of time spent counseling, educating, and coordinating care regarding the above mentioned plan. - Pending Discharge Pending Discharge Within 24 Hours: Yes Pending Discharge Date: 05/11/16 Pending Discharge Time: 11:00 - Physical Exam Constitutional: uncomfortable, No no apparent distress, No not in pain Cardiovascular: tachycardia, edema (Soft tissue out left lower extremity), No systolic murmur, No irregularly irregular Respiratory: no respiratory distress, no rales or rhonchi, clear to auscultation Gastrointestinal: normoactive bowel sounds, soft, non-tender abdomen, no palpable masses Skin: other (Soft tissue tenderness left lower extremity) Neurologic: AAOx3, sensation intact bilaterally, No weakness Psychiatric: not encephalopathic, anxious, agitated ICD10 Worksheet Patient Problems: Problems Problem Status Diagnosed Post-operative pain Acute
--- NOTE | 2016-05-10 16:58 | SOAPPROG ---
SOAP Progress Note Assessment/Plan: Assessment: 4th day post op Left periacetabular osteotomy Plan: Up with PT/OT Oral analgesics/IVP Morphine VTE: ASA 81mg, Active Care SCD D/C home tomorrow evening Thanks to the hospitalist service for assisting us in her management 05/07/16 10:28 05/10/16 16:54 05/10/16 16:59 Subjective: Claire now without epidural, up in chair this morning appearing comfortable. Her mom describes transition to oral analgesics was not smooth. Rocco denies CP, SOB, nausea, feels she would be ready to go home tomorrow. Objective: Vital Signs Temp Pulse Resp BP Pulse Ox 36.9 C 106 H 18 143/83 H 95 05/10/16 16:00 05/10/16 16:00 05/10/16 16:00 05/10/16 16:00 05/10/16 16:00 Laboratory Results 05/09/16 04:46 05/09/16 04:46 05/09/16 05/10/16 05/11/16 05:59 05:59 05:59 Intake Total 3200 300 Output Total 3200 1850 1 Balance 0 -1550 -1 Well appearing in NAD Left hip: dressings clean dry intact some edema, no apparent ecchymosis NVI distally good ROM of foot an ankle - Pending Discharge Pending Discharge Within 24 Hours: Yes Pending Discharge Date: 05/11/16 Pending Discharge Time: 11:00 ICD10 Worksheet Patient Problems: Problems Problem Status Diagnosed Post-operative pain Acute - ICD10 Problem Qualifiers (1) Post-operative pain
[2016-05-10] MEDS: QUASENSE PO SCH (21:11)
[2016-05-10] MEDS: FLUTICASONE FUROATE IH SCH (21:12)
[2016-05-11] MEDS: oxyCODONE IR 5 MG TAB PO SCH ×4 (01:05→17:38)
[2016-05-11] MEDS: ACETAMINOPHEN 500 MG TAB PO SCH ×5 (01:05→17:38)
[2016-05-11 05:50] LABS: % IMMATURE GRANULYOCYTES 0.8 % (0.0-1.1); ABSOLUTE IMMATURE GRANULOCYTES 0.07 10^3/uL (0.00-0.10); ADD DIFF? NO; ADD MORPH? NO; ADD SCAN? NO; ATYPICAL LYMPHOCYTE FLAG 10 (0-99); FRAGMENT RBC FLAG 0 (0-99); HEMATOCRIT 31.2 % (38.0-47.0); LEFT SHIFT FLG 10 (0-99); LIPEMIA HEMOLYSIS FLAG 80 (0-99); MEAN CELL HEMOGLOBIN 28.9 pg (27.9-34.1); MEAN CELL HEMOGLOBIN CONCENTR. 32.1 g/dL (32.4-36.7); MEAN CELL VOLUME 90.2 fL (81.5-99.8); MEAN PLATELET VOLUME 9.8 fL (8.7-11.7); PLATELET CLUMPS FLAG 0 (0-99); PLATELET COUNT 272 10^3/uL (150-400); RED BLOOD CELL COUNT 3.46 10^6/uL (4.18-5.33); RED CELL DISTRIBUTION WIDTH 14.3 % (11.5-15.2)
[2016-05-11 06:21] LABS: ANION GAP 4 mEq/L (8-16); CALCIUM 8.4 mg/dL (8.5-10.4); CARBON DIOXIDE 26 mEq/l (22-31); CHLORIDE 107 mEq/L (97-110); CREATININE 0.6 mg/dL (0.6-1.0); GLOMERULAR FILTRATION RATE > 60; GLUCOSE 95 mg/dL (70-100); POTASSIUM 4.6 mEq/L (3.5-5.2); SODIUM 137 mEq/L (134-144)
[2016-05-11] MEDS: CETIRIZINE 10 MG TAB PO SCH (09:45)
[2016-05-11] MEDS: PREGABALIN 50 MG CAP PO SCH (09:45)
[2016-05-11] MEDS: ASPIRIN EC 81 MG TAB PO SCH (09:45)
[2016-05-11] MEDS: PANTOPRAZOLE SODIUM 40 MG TAB PO SCH (09:46)
[2016-05-11] MEDS: CYCLOBENZAPRINE 10 MG TAB PO SCH (09:46)
[2016-05-11] MEDS: NAPROXEN SODIUM 220 MG TAB PO SCH (09:46)
[2016-05-11] MEDS: SENNOSIDES/DOCUSATE SODIUM TAB PO SCH (09:46)
--- NOTE | 2016-05-11 13:37 | HOSPPROG ---
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 Periacetabular osteotomy. Primary service is Dr. Samina Porter, postop day 5 -postsurgical care and weight-bearing status per primary team 2. Pain. Pain Management has significantly improved w/ the scheduled oxy IR/ tylenol/nsaid, plus breakthrough oxy IR -patient is confident about discharge on this pain regimen -I educated her that she will need to take stool softener/laxative daily while on pain Rx 3. Tachycardia. Sinus, a personally interpreted EKG, most likely secondary to a combination of pain and emotional distress, improved w/ better pain mgmt -patient has no evidence of focal chest pain, shortness of breath, hypoxia, consequently pulmonary embolism is less likely and I would not recommend a CT angiogram at this time -Hgb stable, Cr stable 4. 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 Continue to offer support for this patient given her highly medicalized [facility] Medicine service will sign off, patient is safe for discharge Subjective: Patient reports that pain management has been improved, has had 1 bowel mood Objective: Vital Signs Temp Pulse Resp BP Pulse Ox 36.6 C 96 20 115/60 94 05/11/16 08:00 05/11/16 08:00 05/11/16 08:00 05/11/16 08:00 05/11/16 08:00 Laboratory Results 05/11/16 05:24 05/11/16 05:24 05/10/16 05/11/16 05/12/16 05:59 05:59 05:59 Intake Total 300 1100 Output Total 1850 1 Balance -1550 1099 - Physical Exam Constitutional: no apparent distress, appears nourished, not in pain, No uncomfortable Cardiovascular: no murmur, rub, or gallop, tachycardia, edema (Soft tissue left lower extremity), No irregularly irregular Respiratory: no respiratory distress, no rales or rhonchi, clear to auscultation , other (Breathing well on room air) Gastrointestinal: normoactive bowel sounds, soft, non-tender abdomen, no palpable masses Skin: other (No erythema around the surgical site, soft tissue edema, mild tenderness) Neurologic: AAOx3, sensation intact bilaterally, No facial droop Psychiatric: interacting appropriately, not anxious, not encephalopathic, thought process linear ICD10 Worksheet Patient Problems: Problems Problem Status Diagnosed Post-operative pain Acute
[2016-05-11 16:47] VITALS: BP 113/72; PULSE 108; RESP 18; TEMP 98.4; O2SAT 98
--- NOTE | 2016-05-11 17:28 | SOAPPROG ---
SOAP Progress Note Assessment/Plan: Assessment: 5th day post op Left periacetabular osteotomy Plan: Up with PT/OT Oral analgesics/IVP Morphine VTE: ASA 81mg, Active Care SCD D/C home F/U with Dr. Samina Porter on 05/21/16 Thanks to the hospitalist service for assisting us in her management 05/07/16 10:28 05/10/16 16:54 05/10/16 16:59 05/11/16 17:25 Subjective: Claire is doing well tonight. She is well pain controlled with oral analgesics , her vitals have been stable and she is ready to be discharged. Objective: Vital Signs Temp Pulse Resp BP Pulse Ox 36.9 C 108 H 18 113/72 98 05/11/16 16:20 05/11/16 16:20 05/11/16 16:20 05/11/16 16:20 05/11/16 16:20 Laboratory Results 05/11/16 05:24 05/11/16 05:24 05/10/16 05/11/16 05/12/16 05:59 05:59 05:59 Intake Total 300 1100 Output Total 1850 1 Balance -1550 1099 Well appearing in NAD Left hip dressings clean dry intact some blood blisters at the edges of tegaderm some edema, no ecchymosis Left foot and ankle NVI distally full ROM of foot and ankle - Pending Discharge Pending Discharge Within 24 Hours: Yes Pending Discharge Date: 05/12/16 Pending Discharge Time: 11:00 ICD10 Worksheet Patient Problems: Problems Problem Status Diagnosed Post-operative pain Acute - ICD10 Problem Qualifiers (1) Post-operative pain
--- NOTE | 2016-05-16 13:12 | GDS ---
[f rep st] DISCHARGE SUMMARY HOSPITAL COURSE: Ms. Sales underwent a left periacetabular osteotomy for left acetabular hip dysplasia on May 06, 2016. Intraoperatively, epidural and Ríos catheter were placed. She received good analgesic pain management after her surgery; however, he did note that she had more numbness of her right lower extremity versus her operative side, and while she said it was not working for her pain, she did look comfortable in bed postoperatively. On her 2nd postoperative day, she was found to be tachycardic and hospitalists were consulted for her tachycardia. EKGs were within normal limits aside from the tachycardia. Her hemoglobin and hematocrit were 30 and 10.7, well within the range of postoperative JUSTINE. Etiology of the tachycardia was not clear; however , there was some discussion around anxiety being a contributing factor. Her epidural was turned down on the 3rd postoperative day and withdrawn, as was the Ríos catheter. Her vitals were stable. Pelvic x-ray showed good fixation and bony alignment. She was discharged on her 5th postoperative day in good condition. She will go home with active care, SCDs to be worn 24/7 for 2 weeks and then only at night for a following week, as well as 81 mg aspirin for 1 month. She will follow up with Dr. Kelley on May 21. She will start physical therapy a month after her surgery. /[id number]/MODL MTDD
== END 2016-05-11 18:03 | disposition home or self-care (01) | DRG 516 ==
LOC: F3E 05:22 → F3N 14:20
PROVIDERS: ADMIT Orthopaedic Surgery Sports Medicine; ATTEND Orthopaedic Surgery Sports Medicine
PROC: 0QB50ZZ Excision of Left Acetabulum, Open Approach (ICD-10-PCS; principal; 2016-05-06 07:15)
DX: Q65.89 Other specified congenital deformities of hip (principal); Q79.6 Ehlers-Danlos syndromes; R00.0 Tachycardia, unspecified; F41.9 Anxiety disorder, unspecified
CPT/HCPCS: 97110-GP; 97116-GP; 97162-GP; 97165-GO; 97530-GO; 97530-GP; 97535-GO; C1713; C1769; J1100; J1170; J2001; J2250; J2405; J2704; J3010; J7060

== ENCOUNTER 2016-05-21 11:36 | Emergency (ER) | payer OTHER ==
[2016-05-21 11:47] VITALS: RESP 16
[2016-05-21] MEDS ORDERED: NS 1,000 ML IV ONE (12:20)
--- NOTE | 2016-05-21 12:24 | EDPHY ---
H & P Stated Complaint: FELL ONTO L HIP S/P 2 WEEKS AGO L JUSTINE Time Seen by Provider: 05/21/16 12:18 HPI/ROS: HPI: 25-year-old female presents to emergency department with chief concern fall, landing on her left hip. She was at [employer] on crutches and felt faint and fell. She reports intermittent fevers over the past 2 weeks since a JUSTINE procedure of the left hip by Dr. Rafael Kelley at [facility] who she saw today in the office prior to going to [employer]. He drained a seroma from the left incision. He is aware of her fevers. Has had fevers of 99 this week, and 101 last week. Denies URI symptoms, shortness of breath, chest pain, abdominal pain, nausea, vomiting, diarrhea, urinary symptoms, back or flank pain. ROS:10 point review of systems is negative other than as stated in HPI Source: Patient Exam Limitations: No limitations - Personal History LMP (Females 10-55): Extended Cycle BCP/Inj Current Tetanus Diphtheria and Acellular Pertussis (TDAP): Yes Tetanus Vaccine Date: < 10 YEARS - Medical/Surgical History Hx Asthma: Yes Hx Chronic Respiratory Disease: No Hx Diabetes: No Hx Cardiac Disease: No Hx Renal Disease: No Hx Cirrhosis: No Hx Alcoholism: No Hx HIV/AIDS: No Hx Splenectomy or Spleen Trauma: No Other PMH: TODD DANLOS SYMDROME - Family History Significant Family History: No pertinent family hx - Social History Smoking Status: Never smoked Alcohol Use: None Drug Use: None - Physical Exam Exam: Temp 37.2, heart rate 112, respiratory rate 16, blood pressure 143/81, 98% on room air General: Awake, alert, calm, cooperative. No acute distress. Head: Normalocephalic. Atraumatic. EENT: PERRLA. EOMI. No pallor or injection. Anicteric. No nystagmus. No injection. TMs intact bilaterally with normal landmarks. No rhinnorhea, nasal passages clear. Oropharynx without redness, exudates, or lesions. Tonsils 2+ bilaterally, no exudates. Neck: Supple, nontender. No lymphadenopathy. Full range of motion. No meningismus. Respiratory: Breathing unlabored. Breath sounds equal bilaterally and clear to auscultation. No adventitious sounds. CV: Chest nontender, atraumatic. Heart rate regular. No murmur, distal pulses 2+ bilaterally. Brisk cap refill all extremities. GI: Abdomen soft, nontender. Bowel sounds normoactive and positive x4 quadrants. : No suprapubic tenderness. No CVA or flank tenderness. Neuro: Alert. Oriented x 3. Speech clear. Nonfocal cranial nerves throughout. Sensation intact all extremities. Skin: Skin warm, dry, intact. Steri-Strips over well-approximated incisions left hip. Skin turgor normal. Extremities: Moves all extremities. Strength 5+ all extremities except for the left lower extremity that is 4+. Constitutional: Initial Vital Signs Temperature (C) 37.2 C 05/21/16 11:45 Heart Rate 112 H 05/21/16 11:45 Respiratory Rate 16 05/21/16 11:45 Blood Pressure 143/81 H 05/21/16 11:45 O2 Sat (%) 98 05/21/16 11:45 O2 Delivery Mode Room Air Allergies/Adverse Reactions: amoxicillin Allergy (Verified 04/15/16 10:27) gastritis amoxicillin trihydrate [From Augmentin] Allergy (Verified 04/15/16 10:27) gastritis codeine Allergy (Verified 04/15/16 10:27) Hives ibuprofen [From Motrin] Allergy (Verified 04/15/16 10:27) Hives potassium clavulanate [From Augmentin] Allergy (Verified 04/15/16 10:27) gastritis Home Medications: Medication Instructions Recorded Ascorbic Acid [Vitamin C 500 mg 500 mg PO DAILY 04/10/16 (*)] Diclofenac Sodium [Voltaren 50 MG 50 mg PO DAILY 04/10/16 (*)] Multivitamins [Multivitamin (*)] 1 each PO DAILY 04/10/16 Albuterol [Proventil Inhaler HFA 1 puffs IH DAILY PRN #0 mdi 05/11/16 (*)] Aspirin EC [Aspirin EC 81 mg (*)] 81 mg PO DAILY #0 tab 05/11/16 Cetirizine [ZyrTEC 10 mg (*)] 10 mg PO DAILY #0 tab 05/11/16 Cyclobenzaprine [Flexeril 10 MG 10 mg PO DAILY #0 tab 05/11/16 (*)] Diazepam [Valium 2 MG (*)] 1 - 2 mg PO Q6 PRN #0 tab 05/11/16 Fluticasone Furoate [Arnuity 1 puffs IH HS 05/11/16 Ellipta] Levonorgestrel-Ethin Estradiol 1 each PO HS 05/11/16 [Quasense 0.15-0.03 Mg Tablet] Naproxen Sodium [Aleve 220 MG (*)] 440 mg PO BID #0 tab 05/11/16 Ondansetron Odt [Zofran Odt 4 mg 4 mg PO Q6HRS PRN #0 tab 05/11/16 (*)] Pantoprazole Sodium [Protonix 40mg 40 mg PO DAILY #0 tab 05/11/16 (*)] Pregabalin [Lyrica 50mg (*)] 100 mg PO DAILY #0 cap 05/11/16 oxyCODONE IR [Oxycodone Ir (*)] 10 mg PO Q6 #0 tab 05/11/16 Medical Decision Making - Diagnostics Imaging: Chest, PA and lateral. HISTORY: Fever. Recent surgery. FINDINGS: Heart size is within normal limits. Pulmonary vascularity appears normal. The lungs are clear. No evidence for pleural effusion or pneumothorax. No significant osseous abnormality. IMPRESSION: Normal chest x-ray. Dictated By: Rahul Em MD Left hip, 2 views. History: Pain after fall. Recent periacetabular osteotomy. Comparison: 09 May 2006. Findings: The crosstable lateral is suboptimal, secondary to difficulty positioning the patient. The postsurgical changes seen on the AP pelvis view of the left hip show post surgical changes of periacetabular osteotomy which have a stable alignment and appearance. No evidence for hardware fracture. There is also evidence of right periacetabular osteotomy, stable in appearance. Impression: Postsurgical changes of periacetabular osteotomy in both hips, stable in appearance. Dictated By: Rahul Em MD ED Course/Re-evaluation: 1228: 25-year-old female presents to emergency department after she fell at [employer] because she felt faint while walking on her crutches. She had surgery 2 weeks ago with a physician at [facility]. She saw him today in the office. She has had intermittent fevers over the past 2 weeks. She reports 99.0 fevers over the past several days, 101 last week. She has no URI symptoms, no urinary symptoms. Labs drawn. Blood cultures drawn. Normal saline hung. 1336: White count 84208. Lactic acid 1.1. Chemistry unremarkable. Negative for flu. Urinalysis, chest x-ray, left hip x-ray all pending. I have consulted the office of Dr. Harrison and spoken to his colleague Dr. Ames. They are familiar with this patient. They will evaluate the x-ray that is being performed here in the emergency department. 1430: Urinalysis negative. Chest x-ray negative. Left hip x-ray negative for anything acute. Hardware is stable. Patient has been discharged to follow up with primary care as well as her orthopedist Dr. Kelley. Her pain has resolved. She and her mother both verbalize understanding of these instructions and agree to follow up plan. Differential Diagnosis: Differential diagnosis includes but is not limited to surgical site infection, influenza, pneumonia, UTI, viral syndrome - Data Points Laboratory Results: Laboratory Results 05/21/16 12:27 05/21/16 12:27 05/21/16 05/21/16 13:56 12:27 WBC 10.46 H 10^3/uL (3.80-9.50) RBC 4.22 10^6/uL (4.18-5.33) Hgb 12.1 L g/dL (12.6-16.3) Hct 37.5 L % (38.0-47.0) MCV 88.9 fL (81.5-99.8) MCH 28.7 pg (27.9-34.1) MCHC 32.3 L g/dL (32.4-36.7) RDW 14.4 % (11.5-15.2) Plt Count 425 H 10^3/uL (150-400) MPV 9.7 fL (8.7-11.7) Neut % (Auto) 55.4 % (39.3-74.2) Lymph % (Auto) 33.1 % (15.0-45.0) [place] % (Auto) 4.4 L % (4.5-13.0) Eos % (Auto) 5.2 % (0.6-7.6) Baso % (Auto) 1.4 % (0.3-1.7) Nucleat RBC Rel Count 0.0 % (0.0-0.2) Absolute Neuts (auto) 5.80 10^3/uL (1.70-6.50) Absolute Lymphs (auto) 3.46 H 10^3/uL (1.00-3.00) Absolute Monos (auto) 0.46 10^3/uL (0.30-0.80) Absolute Eos (auto) 0.54 H 10^3/uL (0.03-0.40) Absolute Basos (auto) 0.15 H 10^3/uL (0.02-0.10) Absolute Nucleated RBC 0.00 10^3/uL (0-0.01) Immature Gran % 0.5 % (0.0-1.1) Immature Gran # 0.05 10^3/uL (0.00-0.10) VBG Lactic Acid 1.1 mmol/L (0.7-2.1) Sodium 142 mEq/L (134-144) Potassium 4.0 mEq/L (3.5-5.2) Chloride 106 mEq/L (97-110) Carbon Dioxide 23 mEq/l (22-31) Anion Gap 13 mEq/L (8-16) BUN 9 mg/dL (7-23) Creatinine 0.7 mg/dL (0.6-1.0) Estimated GFR > 60 Glucose 79 mg/dL (70-100) Calcium 9.6 mg/dL (8.5-10.4) Urine Color YELLOW Urine Appearance CLEAR Urine pH 6.0 (5.0-7.5) Ur Specific [place] 1.014 (1.002-1.030) Urine Protein NEGATIVE (NEGATIVE) Urine Ketones NEGATIVE (NEGATIVE) Urine Blood NEGATIVE (NEGATIVE) Urine Nitrate NEGATIVE (NEGATIVE) Urine Bilirubin NEGATIVE (NEGATIVE) Urine Urobilinogen NEGATIVE EU (0.2-1.0) Ur Leukocyte Esterase NEGATIVE (NEGATIVE) Urine Glucose NEGATIVE (NEGATIVE) Influenza Typ A,B (DFA) NEGATIVE FOR FLU (NEGATIVE) Medications Given: Discontinued Medications Hydromorphone HCl (Dilaudid) 0.5 mg IVP EDNOW ONE Stop: 05/21/16 13:12 Last Admin: 05/21/16 13:19 Dose: 0.5 mg Sodium Chloride (Ns) 1,000 mls @ 0 mls/hr IV ONCE ONE PRN Reason: Wide Open Stop: 05/21/16 12:21 Last Admin: 05/21/16 12:56 Dose: 1,000 mls Ketorolac Tromethamine (Toradol) 30 mg IVP EDNOW ONE Stop: 05/21/16 13:45 Last Admin: 05/21/16 14:00 Dose: 30 mg Lorazepam (Ativan Injection) 1 mg IVP EDNOW ONE Stop: 05/21/16 13:12 Last Admin: 05/21/16 13:19 Dose: 1 mg Departure - Departure Disposition: Home, Routine, Self-Care Clinical Impression: Fall, Feeling faint, History of recent surgery, Hip pain, left Condition: Good Instructions: Hip Pain (ED), Fever in Adults (ED) Additional Instructions: Plan: You may use 600 mg of ibuprofen every 6 hours for fever, inflammation, or pain. Always take ibuprofen with food and stay well hydrated while taking. Do not exceed the maximum allowable dose in a 24 hour period which is 2400 mg. You may use 1000 mg of Tylenol every 8 hours. This may be staggered with the ibuprofen. Do not exceed the maximum dose in a 24 hour period which is 3 GM or 3000 mg. Follow up with your orthopedist for recheck within the next 1-2 days, and primary care within the next 1-2 days--When you call to schedule appointment, please let the office know you are an "ER follow up" appointment" Referrals: Rafael Kelley MD [Medical Doctor] - As per Instructions Patient,NotPresent [Unknown] - As per Instructions Rosanne Will MD [Medical Doctor] - As per Instructions
[2016-05-21 12:38] LABS: % IMMATURE GRANULYOCYTES 0.5 % (0.0-1.1); ABSOLUTE IMMATURE GRANULOCYTES 0.05 10^3/uL (0.00-0.10); ADD DIFF? NO; ADD MORPH? NO; ADD SCAN? NO; ATYPICAL LYMPHOCYTE FLAG 10 (0-99); FRAGMENT RBC FLAG 0 (0-99); HEMATOCRIT 37.5 % (38.0-47.0); HEMOGLOBIN 12.1 g/dL (12.6-16.3); LEFT SHIFT FLG 0 (0-99); LIPEMIA HEMOLYSIS FLAG 80 (0-99); MEAN CELL HEMOGLOBIN 28.7 pg (27.9-34.1); MEAN CELL HEMOGLOBIN CONCENTR. 32.3 g/dL (32.4-36.7); MEAN CELL VOLUME 88.9 fL (81.5-99.8); MEAN PLATELET VOLUME 9.7 fL (8.7-11.7); PLATELET CLUMPS FLAG 0 (0-99); PLATELET COUNT 425 10^3/uL (150-400); RED BLOOD CELL COUNT 4.22 10^6/uL (4.18-5.33); RED CELL DISTRIBUTION WIDTH 14.4 % (11.5-15.2)
[2016-05-21 13:03] LABS: ANION GAP 13 mEq/L (8-16); CALCIUM 9.6 mg/dL (8.5-10.4); CARBON DIOXIDE 23 mEq/l (22-31); CHLORIDE 106 mEq/L (97-110); CREATININE 0.7 mg/dL (0.6-1.0); GLOMERULAR FILTRATION RATE > 60; GLUCOSE 79 mg/dL (70-100); SODIUM 142 mEq/L (134-144)
[2016-05-21] MEDS ORDERED: HYDROmorphONE/DILAUDID 1 MG/ML SYR IVP ONE (13:11)
[2016-05-21] MEDS ORDERED: LORazepam 2 MG/ML INJ IVP ONE (13:11)
[2016-05-21] MEDS ORDERED: HYDROmorphONE/DILAUDID 1 MG/ML SYR ONE (13:12)
[2016-05-21] MEDS ORDERED: LORazepam 2 MG/ML INJ ONE (13:14)
[2016-05-21] MEDS ORDERED: KETOROLAC 30 MG/1 ML SDV IVP ONE (13:44)
--- NOTE | 2016-05-21 13:57 | DX ---
Chest, PA and lateral. HISTORY: Fever. Recent surgery. FINDINGS: Heart size is within normal limits. Pulmonary vascularity appears normal. The lungs are urbano ar. No evidence for pleural effusion or pneumothorax. No significant osseous abnormality. IMPRESSION: Normal chest x-ray.
--- NOTE | 2016-05-21 14:02 | DX ---
Left hip, 2 views. History: Pain after fall. Recent periacetabular osteotomy. Comparison: 09 May 2006. Findings: The crosstable lateral is suboptimal, secondary to difficulty positioning the patient. The postsurgical changes seen on the AP pelvis view of the left hip show post surgical changes of periace tabular osteotomy which have a stable alignment and appearance. No evidence for hardware fracture. Th ere is also evidence of right periacetabular osteotomy, stable in appearance. Impression: Postsurgical changes of periacetabular osteotomy in both hips, stable in appearance.
[2016-05-21 14:08] LABS: COLOR YELLOW; LEUKOCYTE ESTERASE,URINE NEGATIVE (NEGATIVE); NITRITE,URINE NEGATIVE (NEGATIVE)
[2016-05-21 15:15] VITALS: BP 118/71; PULSE 107; TEMP 98.8; O2SAT 97
== END 2016-05-21 15:00 | disposition home or self-care (01) ==
LOC: EDUNIT#
DX: S79.912A Unspecified injury of left hip, initial encounter (principal); R55 Syncope and collapse; Z96.641 Presence of right artificial hip joint; Z79.82 Long term (current) use of aspirin; W19.XXXA Unspecified fall, initial encounter
CPT/HCPCS: 96374; J1170; J1885